=== PATIENT | female | born 1970 | race American Indian/Alaskan Native ===

== ENCOUNTER 2016-08-12 10:30 | Emergency (ER) | payer MEDICAID, OTHER ==
[2016-08-12 10:34] VITALS: BMI 27.1
[2016-08-12 10:39] VITALS: RESP 20; TEMP 98.3
[2016-08-12] MEDS ORDERED: Albuterol-Ipratrop 3 mg / 0.5 (3 ml) UD IH STA ×3 (11:06→13:29)
--- NOTE | 2016-08-12 11:11 | ED PDOC ---
Arrival/HPI - General Historian: Patient - History of Present Illness Time/Duration: 1 week Symptom Onset: Gradual Symptom Course: Worsening - General Chief Complaint: Shortness Of Breath Time Seen by Provider: 08/12/16 10:47 - History of Present Illness Narrative History of Present Illness (Text): 08/12/16 11:07 45 year old female with past medical history of asthma presents to [facility] ED complaining of coughs and shortness. Patient reports her symptoms started about 1 week ago and they have been getting progressively worse. She was admitted to hospital twice, but never intubated. Patient tried albuterol inhaler and over the counter Mucinex which did not provide any relief. Patient's symptoms are worse at night time. Her coughs are non productive and denies having any fever or chest pain. Patient also complains of back pain that is associated with continuous coughing. Patient states she no longer smokes, but her last cigarette was 3 days ago. Patient further denies headache, weakness, nausea, vomiting, abdominal pain, diarrhea, urinary symptoms , sick contacts, recent travels or lower extremity pain. (Sanjay Pino) Past Medical History - Provider Review Nursing Documentation Reviewed: Yes - Past History Past History: Non-Contributing - Infectious Disease Hx of Infectious Diseases: None - Tetanus Immunization Tetanus Immunization: Unknown - Reproductive Menopause: Yes - Past Medical History Past Medical History: No Previous - Cardiac Hx Cardiac Disorders: No - Pulmonary Hx Respiratory Disorders: Yes Hx Asthma: Yes Hx Bronchitis: Yes - Neurological Hx Neurological Disorder: No - HEENT Hx HEENT Disorder: No - Renal Hx Renal Disorder: No - Endocrine/Metabolic Hx Endocrine Disorders: No - Hematological/Oncological Hx Blood Disorders: No - Integumentary Hx Dermatological Disorder: No - Musculoskeletal/Rheumatological Hx Musculoskeletal Disorders: No - Gastrointestinal Hx Gastrointestinal Disorders: No - Genitourinary/Gynecological Hx Genitourinary Disorders: No - Psychiatric Hx Psychophysiologic Disorder: No Hx Substance Use: No - Surgical History Hx Tubal Ligation: Yes - Anesthesia Hx Anesthesia: Yes Hx Anesthesia Reactions: No Hx Malignant Hyperthermia: No - Suicidal Assessment Feels Threatened In Home Enviroment: No Family/Social History - Physician Review Nursing Documentation Reviewed: Yes Family/Social History: Other (asthma) Smoking Status: Light Smoker < 10 Cigarettes Daily Hx Alcohol Use: Yes Hx Substance Use: No Hx Substance Use Treatment: No Allergies/Home Meds Allergies/Adverse Reactions: Allergies Penicillins Allergy (Verified 05/18/16 09:41) RASH Review of Systems - Physician Review All systems were reviewed & negative as marked: Yes - Review of Systems Constitutional: Normal. absent: Fatigue, Weight Change, Fevers, Night Sweats Eyes: Normal. absent: Vision Changes, Photophobia ENT: Normal. absent: Sore Throat, Rhinorrhea, Epistaxis, Sinus Congestion Respiratory: SOB, Cough. absent: Sputum Cardiovascular: Normal. absent: Palpitations, Syncope Gastrointestinal: Normal. absent: Abdominal Pain, Constipation, Diarrhea, Nausea, Vomiting Musculoskeletal: Back Pain (associated with coughs) Skin: Normal Neurological: Normal. absent: Headache, Dizziness Endocrine: Normal. absent: Diaphoresis, Polyuria, Polydipsia Hemo/Lymphatic: Normal Psychiatric: Normal. absent: Anxiety, Depression Physical Exam Vital Signs Reviewed: Yes Temperature: Afebrile Blood Pressure: Normal Pulse: Regular Respiratory Rate: Normal Appearance: Positive for: Non-Toxic, Comfortable Pain Distress: None Mental Status: Positive for: Alert and Oriented X 3 - Systems Exam Head: Present: Atraumatic, Normocephalic Pupils: Present: PERRL Extroacular Muscles: Present: EOMI Conjunctiva: Present: Normal Mouth: Present: Moist Mucous Membranes Respiratory/Chest: Present: Good Air Exchange, Wheezes, Other (continuous non productive coughs). No: Respiratory Distress, Accessory Muscle Use Cardiovascular: Present: Regular Rate and Rhythm, Normal S1, S2. No: Murmurs Abdomen: Present: Normal Bowel Sounds. No: Tenderness, Distention, Peritoneal Signs Upper Extremity: Present: Normal Inspection, NORMAL PULSES, Neurovascularly Intact. No: Cyanosis, Edema Lower Extremity: Present: Normal Inspection, NORMAL PULSES, Neurovascularly Intact. No: Edema Neurological: Present: GCS=15, CN II-XII Intact, Speech Normal Skin: Present: Warm, Dry, Normal Color. No: Rashes Psychiatric: Present: Alert, Oriented x 3, Normal Insight, Normal Concentration Vital Signs Temp Pulse Resp BP Pulse Ox 08/12/16 13:58 84 20 116/60 98 08/12/16 12:30 80 20 121/73 99 08/12/16 10:38 20 98 08/12/16 10:31 98.3 F 86 20 119/80 95 Medical Decision Making ED Course and Treatment: Patient Seen With Resident: In agreement with resident note. Patient was seen and evaluated with resident, came up with plan and treatment together. Patient noted to have persistent wheezing after initial nebulizer. Patient continues to smoke daily and has been counseled on smoking cessation. Additional nebulizers and steroids ordered. Patient will be reassessed. (Narendra Avendaño) 08/12/16 11:07 -CBC, BMP -EKG, Cardiac iso -Duoneb -CXR DDx: Asthma exacerbation, acute bronchitis, community acquired pneumonia 45 year old female with past medical history of asthma presents with worsening shortness of breath and coughs of 7 days. Patient is a current smoker. 08/12/16 14:25 Patient symptoms resolved after receiving 3 dose of duoneb and IV solu-medrol. Patient no longer complains of shortness of breath. Patient's coughing and wheezing improved. Patient will be discharged with z-doroteo and 4 day course of prednisone. (Sanjay Pino) - Lab Interpretations Lab Results: 08/12/16 11:33 08/12/16 11:33 Lab Results 08/12/16 11:33: WBC 5.8 D, RBC 4.17, Hgb 13.4, Hct 39.8, MCV 95.4, MCH 32.1, MCHC 33.7, RDW 12.6, Plt Count 373, MPV 10.2, Gran % 49.2 L, Lymph % (Auto) 31.0 , Ferry % (Auto) 6.5 H, Eos % (Auto) 12.8 H, Baso % (Auto) 0.5, Gran # 2.87, Lymph # 1.8, Ferry # 0.4, Eos # 0.8 H, Baso # 0.03, Sodium 139, Potassium 4.0, Chloride 103, Carbon Dioxide 26, Anion Gap 14, BUN 6 L, Creatinine 0.8, Est GFR ( Amer) > 60, Est GFR (Non-Af Amer) > 60, Random Glucose 121 H, Calcium 9.2, Lactate Dehydrogenase 406, Total Creatine Kinase 91, Troponin I < 0.01 D - RAD Interpretation Radiology Orders: 08/12/16 11:02 CHEST TWO VIEWS (PA/LAT) [RAD] Stat - Medication Orders Current Medication Orders: Discontinued Medications Albuterol/Ipratropium (Duoneb 3 Mg/0.5 Mg (3 Ml) Ud) 3 ml IH STAT STA Stop: 08/12/16 11:07 Last Admin: 08/12/16 11:20 Dose: 3 ML Albuterol/Ipratropium (Duoneb 3 Mg/0.5 Mg (3 Ml) Ud) 3 ml IH STAT STA Stop: 08/12/16 12:34 Last Admin: 08/12/16 12:45 Dose: 3 ML Albuterol/Ipratropium (Duoneb 3 Mg/0.5 Mg (3 Ml) Ud) 3 ml IH STAT STA Stop: 08/12/16 13:30 Last Admin: 08/12/16 13:51 Dose: 3 ML Methylprednisolone (Solu-Medrol) 125 mg IVP STAT STA Stop: 08/12/16 12:34 Last Admin: 08/12/16 12:45 Dose: 125 MG IVP Administration Document 08/12/16 12:45 SRE (Rec: 08/12/16 13:08 SRE [id number]) Charges for Administration # of IVP Administrations 1 Disposition/Present on Arrival - Present on Arrival Any Indicators Present on Arrival: No History of DVT/PE: No History of Uncontrolled Diabetes: No Urinary Catheter: No History of Decub. Ulcer: No History Surgical Site Infection Following: None - Disposition Have Diagnosis and Disposition been Completed?: Yes Disposition Time: 14:19 Patient Plan: Discharge - Disposition Diagnosis: Asthma, Bronchitis Disposition: HOME/ ROUTINE Condition: GOOD Discharge Instructions (ExitCare): Asthma (ED), Acute Bronchitis (ED), How to Stop Smoking (ED) Prescriptions: Prednisone [Deltasone] 40 mg PO DAILY #4 tablet Azithromycin [Z-Doroteo] 250 mg PO DAILY #6 tab Referrals: PCP,NO [Primary Care Provider] - Follow up with primary
[2016-08-12 11:33] LABS: ADD MANUAL DIFF? NO
[2016-08-12 11:40] LABS: BASO # 0.03 K/mm3 (0.0-2.0); BASO % 0.5 % (0.0-3.0); EOS # 0.8 (0.0-0.7); EOS % 12.8 % (1.5-5.0); GRAN # 2.87 (1.4-6.5); GRAN % 49.2 % (50.0-68.0); HEMATOCRIT 39.8 % (36.0-48.0); LYMPH # 1.8 (1.2-3.4); MEAN CELL VOLUME 95.4 fL (80.0-105.0); MEAN CORPUSCULAR HEMOGLOBIN 32.1 pg (25.0-35.0); MEAN CORPUSCULAR HGB CONC 33.7 g/dl (31.0-37.0); MEAN PLATELET VOLUME 10.2 fl (7.0-11.0); MONO # 0.4 (0.1-0.6); MONO % 6.5 % (1.0-6.0); PLATELET COUNT 373 10^3/uL (120.0-450.0); RED CELL DISTRIBUTION WIDTH 12.6 % (11.5-14.5); WHITE BLOOD COUNT 5.8 10^3/ul (4.5-11.0)
[2016-08-12 11:50] LABS: BLOOD UREA NITROGEN 6 mg/dL (7-21); CALCIUM 9.2 mg/dL (8.4-10.5); CARBON DIOXIDE 26 mmol/L (21-33); CHLORIDE 103 mmol/L (98-107); GFR AFRICAN-AMERICAN > 60; GLUCOSE,RANDOM 121 mg/dL (70-110); SODIUM 139 mmol/L (132-148)
[2016-08-12 12:05] LABS: TROPONIN I < 0.01 ng/mL
--- NOTE | 2016-08-12 12:41 | RAD ---
HISTORY: cough, shortness of breath COMPARISON: 08/26/2015 TECHNIQUE: Chest PA and lateral FINDINGS: LUNGS: No active pulmonary disease. PLEURA: No significant pleural effusion identified. No pneumothorax apparent. CARDIOVASCULAR: Normal. OSSEOUS STRUCTURES: No significant abnormalities. VISUALIZED UPPER ABDOMEN: Normal. OTHER FINDINGS: None. IMPRESSION: No active disease. No interval pathology
[2016-08-12 13:59] VITALS: BP 116/60; PULSE 84; O2SAT 98
--- NOTE | 2016-08-12 17:55 | CARD ---
APPROVED REPORT EKG Measurement Heart [id number] <Conclusion> Normal sinus rhythm Normal ECG
== END 2016-08-12 14:38 | disposition home or self-care (01) ==
LOC: ED 10:30
DX: J45.909 Unspecified asthma, uncomplicated (principal); F17.210 Nicotine dependence, cigarettes, uncomplicated
CPT/HCPCS: 71020; 80048; 82550; 83615; 84484; 85025; 93005; 96374; 99284; J2930

== ENCOUNTER 2016-12-02 11:27 | Emergency (ER) | payer MEDICAID ==
[2016-12-02 11:27] VITALS: BMI 27.1
[2016-12-02 12:00] VITALS: TEMP 98.6
--- NOTE | 2016-12-02 13:02 | ED PDOC ---
Arrival/HPI - General Chief Complaint: Lower Extremity Problem/Injury Time Seen by Provider: 12/02/16 11:44 Historian: Patient - History of Present Illness Narrative History of Present Illness (Text): 12/02/16 11:46 A 46 year old female whose past medical history includes asthma presents to the emergency department with right inner thigh pain due to a mechanical fall. The patient states that she slipped in her bathroom and hurt her right inner thigh against the toilet when she fell 2 days ago. The patient denies injury or trauma to any other part of the body, headache, nausea, dizziness, vomiting, diarrhea, shortness of breath, abdominal pain, or any other complaint. Symptom Onset: Sudden Symptom Course: Unchanged Activities at Onset: Rest, Light Context: Slipped Past Medical History - Provider Review Nursing Documentation Reviewed: Yes - Past History Past History: Non-Contributing - Infectious Disease Hx of Infectious Diseases: None - Tetanus Immunization Tetanus Immunization: Unknown - Past Medical History Past Medical History: No Previous - Cardiac Hx Cardiac Disorders: No - Pulmonary Hx Respiratory Disorders: Yes Hx Asthma: Yes Hx Bronchitis: Yes - Neurological Hx Neurological Disorder: No - HEENT Hx HEENT Disorder: No - Renal Hx Renal Disorder: No - Endocrine/Metabolic Hx Endocrine Disorders: No - Hematological/Oncological Hx Blood Disorders: No - Integumentary Hx Dermatological Disorder: No - Musculoskeletal/Rheumatological Hx Musculoskeletal Disorders: No - Gastrointestinal Hx Gastrointestinal Disorders: No - Genitourinary/Gynecological Hx Genitourinary Disorders: No - Psychiatric Hx Psychophysiologic Disorder: Yes Hx Depression: Yes Hx Substance Use: No - Surgical History Hx Tubal Ligation: Yes - Anesthesia Hx Anesthesia: Yes Hx Anesthesia Reactions: No Hx Malignant Hyperthermia: No - Suicidal Assessment Feels Threatened In Home Enviroment: No Family/Social History - Physician Review Nursing Documentation Reviewed: Yes Family/Social History: No Known Family HX Smoking Status: Light Smoker < 10 Cigarettes Daily Hx Alcohol Use: Yes Frequency of alcohol use: Socially Hx Substance Use: No Hx Substance Use Treatment: No Allergies/Home Meds Allergies/Adverse Reactions: Allergies Penicillins Allergy (Verified 12/02/16 11:42) RASH Home Medications: Home Meds Medication Instructions Recorded Confirmed Mirtazapine [Mirtazapine] 30 mg PO DAILY 12/02/16 12/02/16 Venlafaxine HCl [Venlafaxine HCl 1 tab PO DAILY 12/02/16 12/02/16 ER] Review of Systems - Review of Systems Constitutional: absent: Fevers, Night Sweats Respiratory: absent: SOB Cardiovascular: Chest Pain Gastrointestinal: absent: Abdominal Pain, Diarrhea, Nausea, Vomiting Musculoskeletal: Other (Right upper thigh pain) Neurological: absent: Headache, Dizziness Physical Exam Vital Signs Reviewed: Yes Vital Signs Temp Pulse Resp BP Pulse Ox 12/02/16 11:44 98.6 F 84 19 129/91 H 98 Temperature: Afebrile Blood Pressure: Hypertensive Pulse: Regular Respiratory Rate: Normal Appearance: Positive for: Well-Appearing, Non-Toxic, Comfortable Pain Distress: Mild Mental Status: Positive for: Alert and Oriented X 3 - Systems Exam Head: Present: Atraumatic, Normocephalic Neck: Present: Normal Range of Motion Respiratory/Chest: No: Respiratory Distress Abdomen: Present: Normal Bowel Sounds. No: Tenderness, Distention, Peritoneal Signs Back: Present: Normal Inspection Upper Extremity: Present: Normal Inspection. No: Cyanosis, Edema Lower Extremity: Present: NORMAL PULSES (femoral pulse normal), Tenderness ( Mild tenderness to palpation of the right inner thigh), Other (no induration, warmth, errythema, exacerbation of pain with external rotation.). No: Edema, Erythema, Temperature Abnormalties Neurological: Present: GCS=15, CN II-XII Intact, Speech Normal Skin: Present: Warm, Dry, Normal Color. No: Rashes Psychiatric: Present: Alert, Oriented x 3, Normal Insight, Normal Concentration Medical Decision Making ED Course and Treatment: 12/02/16 11:54 Impression: A 46 year old female with right inner thigh pain after a mechanical fall. Differential: muscle strain vs groin hematoma vs DVT vs fx Plan: -- Toradol and Ultram -- US Right Lower Extremity vein -- XR Femur Right -- XR Right Hip with Pelvis -- Reassess and disposition Progress Notes: 12/02/16 14:08 Patient with noted history - xray is negative for fx. Sono showing no DVT. Findings are consistent with groin muscle strain. Patient is more comfortable walking with knee straight, so will d/c in knee immobilizer and nsaids and f/u ortho. - RAD Interpretation Radiology Orders: 12/02/16 11:54 Femur Right [FEMUR MIN 2 VIEWS RT] [RAD] Stat HIP MIN 2V W/ PELVIS RT [RAD] Stat 12/02/16 11:55 DUPLEX LOWER EXTRM VEIN RIGHT [US] Stat - Medication Orders Current Medication Orders: Discontinued Medications Ketorolac Tromethamine (Toradol) 60 mg IM STAT STA Stop: 12/02/16 11:56 Last Admin: 12/02/16 12:06 Dose: 60 mg Tramadol HCl (Ultram) 50 mg PO STAT STA Stop: 12/02/16 11:57 Last Admin: 12/02/16 12:06 Dose: 50 mg - Scribe Statement The provider has reviewed the documentation as recorded by the Roland Hay Provider Scribe Attestation: All medical record entries made by the Scribe were at my direction and personally dictated by me. I have reviewed the chart and agree that the record accurately reflects my personal performance of the history, physical exam, medical decision making, and the department course for this patient. I have also personally directed, reviewed, and agree with the discharge instructions and disposition. Disposition/Present on Arrival - Present on Arrival Any Indicators Present on Arrival: No History of DVT/PE: No History of Uncontrolled Diabetes: No Urinary Catheter: No History of Decub. Ulcer: No History Surgical Site Infection Following: None - Disposition Have Diagnosis and Disposition been Completed?: Yes Diagnosis: Groin strain Disposition: HOME/ ROUTINE Disposition Time: 14:10 Patient Plan: Discharge Patient Problems: Current Active Problems Problem Status Onset Groin strain Acute Condition: GOOD Discharge Instructions (ExitCare): Groin Strain (ED) Additional Instructions: Take the naprosyn as prescribed. Follow up with orthopedics. Return to the emergency department if any new concerning symptoms. Prescriptions: Naproxen [Naprosyn] 500 mg PO BID PRN #30 tab PRN Reason: Pain Referrals: Maldonado Bran MD [Primary Care Provider] - Follow up with primary Demetrio Oseguera MD [Staff Provider] - Follow up with primary Forms: [employer] ([place]atian)
--- NOTE | 2016-12-02 13:47 | RAD ---
PROCEDURE: Right Femur Radiographs. HISTORY: R thight pain COMPARISON: None. TECHNIQUE: AP and Lateral Radiographs of the right femur. FINDINGS: FEMUR: Normal. No fracture. SOFT TISSUES: Normal. OTHER FINDINGS: None. IMPRESSION: Unremarkable radiographs of the right femur.
--- NOTE | 2016-12-02 13:48 | RAD ---
PROCEDURE: Right Hip and pelvis Radiographs. HISTORY: R thigh pain COMPARISON: None. FINDINGS: BONES: Normal. No fracture. JOINTS: Normal. SOFT TISSUES: Normal. OTHER FINDINGS: None. IMPRESSION: Negative study
[2016-12-02 14:21] VITALS: BP 128/88; PULSE 80; RESP 18; O2SAT 99
--- NOTE | 2016-12-02 17:23 | US ---
PROCEDURE: Right lower extremity venous US HISTORY: Leg pain and swelling. Evaluate for DVT. PHYSICIAN(S): Richi Espana M.D. TECHNIQUE: Duplex sonography and color-flow Doppler with graded compression were used to evaluate the deep venous system of the right lower extremity. FINDINGS: The visualized deep venous system of the right lower extremity is sonographically normal and compressible. Normal waveforms and augmentation are seen. There is no sonographic evidence for deep venous thrombosis in the visualized segments of the right lower extremity. IMPRESSION: 1. No sonographic evidence for deep venous thrombosis in the visualized segments of the right lower extremity.
== END 2016-12-02 14:28 | disposition home or self-care (01) ==
LOC: ED 11:27
DX: S39.011A Strain of muscle, fascia and tendon of abdomen, initial encounter (principal); W01.0XXA Fall on same level from slipping, tripping and stumbling without subsequent striking against object, initial encounter; Y92.002 Bathroom of unspecified non-institutional (private) residence as the place of occurrence of the external cause
CPT/HCPCS: 73502; 73552; 93971; 96372; 99285; J1885

== ENCOUNTER 2016-12-02 19:00 | Emergency (ER) | payer MEDICAID ==
[2016-12-02 19:13] VITALS: BMI 26.7
[2016-12-02 19:14] VITALS: BP 110/59; PULSE 73; RESP 19; TEMP 98.7; O2SAT 98
--- NOTE | 2016-12-02 20:15 | ED PDOC ---
Arrival/HPI - General Chief Complaint: Syncope Time Seen by Provider: 12/02/16 19:19 Historian: Patient - History of Present Illness Narrative History of Present Illness (Text): 12/02/16 20:06 A 46 year old female presents to the emergency department with onset of dizziness, palpatation, and diaphoresis this evening with subsequnet syncopal episode. Patient had been seen earlier in emergency department for strain to her leg after a mechanical fall. The pt states that she was in the elevator when symptoms began. She was going to visit her boyfriend. The only recollection the pt has is waking up having hit the back of her head. She states that according to her boyfriend, it seemed that her eyes were rolled back in her head. Patient denies shortness of breath, chest pain, nausea, vomiting, diarrhea, chills, fever, or any other complaint. Time/Duration: Prior to Arrival Symptom Course: Unchanged Activities at Onset: Rest, Light Context: Home Past Medical History - Provider Review Nursing Documentation Reviewed: Yes - Past History Past History: Non-Contributing - Infectious Disease Hx of Infectious Diseases: None - Tetanus Immunization Tetanus Immunization: Unknown - Past Medical History Past Medical History: No Previous - Cardiac Hx Cardiac Disorders: No - Pulmonary Hx Respiratory Disorders: Yes Hx Asthma: Yes Hx Bronchitis: Yes - Neurological Hx Neurological Disorder: No - HEENT Hx HEENT Disorder: No - Renal Hx Renal Disorder: No - Endocrine/Metabolic Hx Endocrine Disorders: No - Hematological/Oncological Hx Blood Disorders: No - Integumentary Hx Dermatological Disorder: No - Musculoskeletal/Rheumatological Hx Musculoskeletal Disorders: No - Gastrointestinal Hx Gastrointestinal Disorders: No - Genitourinary/Gynecological Hx Genitourinary Disorders: No - Psychiatric Hx Psychophysiologic Disorder: No Hx Depression: No Hx Substance Use: No - Surgical History Hx Tubal Ligation: Yes - Anesthesia Hx Anesthesia: Yes Hx Anesthesia Reactions: No Hx Malignant Hyperthermia: No - Suicidal Assessment Feels Threatened In Home Enviroment: No Family/Social History - Physician Review Nursing Documentation Reviewed: Yes Family/Social History: No Known Family HX Smoking Status: Light Smoker < 10 Cigarettes Daily Hx Alcohol Use: Yes Hx Substance Use: No Hx Substance Use Treatment: No Allergies/Home Meds Allergies/Adverse Reactions: Allergies Penicillins Allergy (Verified 12/02/16 19:14) RASH Home Medications: Home Meds Medication Instructions Recorded Confirmed Mirtazapine [Mirtazapine] 30 mg PO DAILY 12/02/16 12/02/16 Venlafaxine HCl [Venlafaxine HCl 1 tab PO DAILY 12/02/16 12/02/16 ER] Review of Systems - Physician Review All systems were reviewed & negative as marked: Yes - Review of Systems Respiratory: absent: SOB Cardiovascular: absent: Chest Pain Gastrointestinal: absent: Abdominal Pain, Diarrhea, Nausea, Vomiting Neurological: Dizziness, Other (Syncopal Episode) Physical Exam Vital Signs Reviewed: Yes Vital Signs Temp Pulse Resp BP Pulse Ox 12/02/16 19:13 98.7 F 73 19 110/59 L 98 Temperature: Afebrile Blood Pressure: Hypertensive Pulse: Regular Respiratory Rate: Normal Appearance: Positive for: Well-Appearing, Non-Toxic, Comfortable Pain Distress: None Mental Status: Positive for: Alert and Oriented X 3 - Systems Exam Head: Present: Atraumatic, Normocephalic. No: Other (no evidence of tonic- clonic movemetns. Tenderness to posterior occipital scalp) Pupils: Present: PERRL Extroacular Muscles: Present: EOMI Conjunctiva: Present: Normal Mouth: Present: Moist Mucous Membranes. No: Other (No tongue biting) Neck: Present: Normal Range of Motion Respiratory/Chest: Present: Clear to Auscultation, Good Air Exchange. No: Respiratory Distress, Accessory Muscle Use Cardiovascular: Present: Regular Rate and Rhythm, Normal S1, S2. No: Murmurs Abdomen: Present: Normal Bowel Sounds. No: Tenderness, Distention, Peritoneal Signs Genitourinary/Pelvic Exam: No: Other (No urinary incontinence) Back: Present: Normal Inspection Upper Extremity: Present: Normal Inspection. No: Cyanosis, Edema Lower Extremity: Present: Normal Inspection. No: Edema Neurological: Present: GCS=15, CN II-XII Intact, Speech Normal Skin: Present: Warm, Dry, Normal Color. No: Rashes Psychiatric: Present: Alert, Oriented x 3, Normal Insight, Normal Concentration Medical Decision Making ED Course and Treatment: 12/02/16 20:20 Impression: A 46 year old female after a syncopal episode. Differential Diagnosis included but are not limited to: Plan: -- Reassess and disposition Prior Visits: Notes and results from previous visits were reviewed. Patient was last seen in the emergency department on Progress Notes: 12/02/16 21:30 Pt. had refused complete ER evaluation including labs/CT scan Head.Stated she felt fine and wanted to leave.Understands in full risk of refusal including possibility undiagnosed illness/brain injury/disease/possible heart disease/ .Nevertheless insists on leaving.Pt. to sign out AGAINST MEDICAL ADVICE. - RAD Interpretation Radiology Orders: 12/02/16 19:34 CHEST PORTABLE [RAD] Stat Disposition/Present on Arrival - Present on Arrival Any Indicators Present on Arrival: No History of DVT/PE: No History of Uncontrolled Diabetes: No Urinary Catheter: No History of Decub. Ulcer: No History Surgical Site Infection Following: None - Disposition Have Diagnosis and Disposition been Completed?: Yes Diagnosis: Syncope Disposition: AGAINST MEDICAL ADVICE Disposition Time: 21:30 Condition: STABLE Discharge Instructions (ExitCare): Syncope (ED) Referrals: Isabella Nielson MD [Primary Care Provider] - Follow up with primary Forms: [employer] (Gu[place]ian)
--- NOTE | 2016-12-03 08:20 | RAD ---
HISTORY: syncope COMPARISON: 08/12/2016 FINDINGS: LUNGS: No active pulmonary disease. PLEURA: No significant pleural effusion identified, no pneumothorax apparent. CARDIOVASCULAR: Normal. OSSEOUS STRUCTURES: No significant abnormalities. VISUALIZED UPPER ABDOMEN: Normal. OTHER FINDINGS: None. IMPRESSION: No active disease.
--- NOTE | 2016-12-04 01:12 | CARD ---
APPROVED REPORT EKG Measurement Heart [id number] <Conclusion> Normal sinus rhythm Normal ECG
== END 2016-12-02 21:30 | disposition left against medical advice (07) ==
LOC: ED 19:00
DX: R55 Syncope and collapse (principal); Z88.0 Allergy status to penicillin; F17.210 Nicotine dependence, cigarettes, uncomplicated

== ENCOUNTER 2018-08-31 22:50 | Inpatient (IN) | payer MEDICAID ==
[2018-08-31] MEDS ORDERED: Albuterol-Ipratrop 3 mg / 0.5 (3 ml) UD IH STA (23:55)
[2018-09-01 01:18] LABS: ALB/GLOB RATIO 1.4 (1.1-1.8); ALBUMIN 4.4 g/dL (3.0-4.8); ALT/SGPT 19 U/L (7-56); AST/SGOT 31 U/L (14-36); BLOOD UREA NITROGEN 14 mg/dL (7-21); CALCIUM 9.4 mg/dL (8.4-10.5); GFR NON-AFRICAN AMERICAN > 60
[2018-09-01 01:20] LABS: BASO # 0.03 K/mm3 (0.0-2.0); BASO % 0.4 % (0.0-3.0); EOS # 0.6 (0.0-0.7); EOS % 7.1 % (1.5-5.0); HEMOGLOBIN 13.4 g/dL (12.0-16.0); LYMPH # 2.4 (1.2-3.4); LYMPH % 31.5 % (22.0-35.0); MEAN CORPUSCULAR HEMOGLOBIN 31.9 pg (25.0-35.0); MEAN CORPUSCULAR HGB CONC 33.6 g/dl (31.0-37.0); MONO # 0.5 (0.1-0.6); MONO % 6.7 % (1.0-6.0); RBC 4.2 10^6/uL (3.5-6.1); RED CELL DISTRIBUTION WIDTH 12.1 % (11.5-14.5); WHITE BLOOD COUNT 7.8 10^3/uL (4.5-11.0)
[2018-09-01] MEDS ORDERED: Albuterol-Ipratrop 3 mg / 0.5 (3 ml) UD IH STA ×2 (01:21→02:48)
--- NOTE | 2018-09-01 02:08 | ED PDOC ---
Arrival/HPI - General Chief Complaint: Shortness Of Breath Time Seen by Provider: 08/31/18 23:04 Historian: Patient - History of Present Illness Narrative History of Present Illness (Text): 09/01/18 02:05 A 47 year old female, whose past medical history includes asthma, presents to the emergency department complaining of worsening shortness of breath for the past few days. Patient reports also experiencing constant cough and nasal congestion. States she has been using nebulizer without improvement. Patient denies any fever, chills, abdominal pain, nausea, vomiting, or any other complaints at this time. Admits to current history of smoking. PMD: Dr. Nielson Time/Duration: < week (few days) Past Medical History - Provider Review Nursing Documentation Reviewed: Yes - Past History Past History: Non-Contributing - Infectious Disease Hx of Infectious Diseases: None - Tetanus Immunization Tetanus Immunization: Unknown - Past Medical History Past Medical History: No Previous - Cardiac Hx Cardiac Disorders: No - Pulmonary Hx Respiratory Disorders: Yes Hx Asthma: Yes Hx Bronchitis: Yes - Neurological Hx Neurological Disorder: No - HEENT Hx HEENT Disorder: No - Renal Hx Renal Disorder: No - Endocrine/Metabolic Hx Endocrine Disorders: No - Hematological/Oncological Hx Blood Disorders: No - Integumentary Hx Dermatological Disorder: No - Musculoskeletal/Rheumatological Hx Musculoskeletal Disorders: No - Gastrointestinal Hx Gastrointestinal Disorders: No - Genitourinary/Gynecological Hx Genitourinary Disorders: No - Psychiatric Hx Psychophysiologic Disorder: No Hx Depression: No Hx Substance Use: No - Surgical History Hx Tubal Ligation: Yes - Anesthesia Hx Anesthesia: Yes Hx Anesthesia Reactions: No Hx Malignant Hyperthermia: No - Suicidal Assessment Feels Threatened In Home Enviroment: No Family/Social History - Physician Review Nursing Documentation Reviewed: Yes Family/Social History: No Known Family HX Smoking Status: Light Smoker < 10 Cigarettes Daily Hx Alcohol Use: Yes Hx Substance Use: No Hx Substance Use Treatment: No Allergies/Home Meds Allergies/Adverse Reactions: Allergies Penicillins Allergy (Verified 12/02/16 19:14) RASH Home Medications: Home Meds Medication Instructions Recorded Confirmed Mirtazapine 30 mg PO DAILY 12/02/16 12/02/16 Venlafaxine HCl [Venlafaxine HCl 1 tab PO DAILY 12/02/16 12/02/16 ER] Review of Systems - Physician Review All systems were reviewed & negative as marked: Yes - Review of Systems Constitutional: absent: Fevers, Night Sweats Eyes: absent: Vision Changes, Photophobia, Eye Pain ENT: Sinus Congestion Respiratory: SOB (worsening), Cough (constant), Wheezing Cardiovascular: absent: Chest Pain, Palpitations Gastrointestinal: absent: Abdominal Pain, Constipation, Diarrhea, Nausea, Vomiting Genitourinary Female: absent: Dysuria, Frequency, Hematuria Musculoskeletal: absent: Arthralgias, Back Pain, Neck Pain Skin: absent: Rash, Pruritis Neurological: absent: Headache, Dizziness Psychiatric: absent: Anxiety, Depression, Suicidal Ideation Physical Exam Vital Signs Reviewed: Yes Vital Signs Temp Pulse Resp BP Pulse Ox 08/31/18 22:50 98.2 F 96 H 18 132/74 98 Temperature: Afebrile Blood Pressure: Normal Pulse: Regular Respiratory Rate: Tachypneic Appearance: Positive for: Well-Appearing, Non-Toxic, Comfortable Pain Distress: Mild Mental Status: Positive for: Alert and Oriented X 3 - Systems Exam Head: Present: Atraumatic, Normocephalic Pupils: Present: PERRL Extroacular Muscles: Present: EOMI Conjunctiva: Present: Normal Mouth: Present: Moist Mucous Membranes Neck: Present: Normal Range of Motion Respiratory/Chest: Present: Wheezes (diffuse wheezing bilaterally), Tachypneic. No: Clear to Auscultation, Good Air Exchange, Respiratory Distress, Accessory Muscle Use, Decreased Breath Sounds Cardiovascular: Present: Regular Rate and Rhythm, Normal S1, S2. No: Murmurs Abdomen: No: Tenderness, Distention, Peritoneal Signs, Rebound, Guarding Back: Present: Normal Inspection Upper Extremity: Present: Normal Inspection. No: Cyanosis, Edema Lower Extremity: Present: Normal Inspection. No: Edema, CALF TENDERNESS Neurological: Present: GCS=15, Speech Normal Skin: Present: Warm, Dry, Normal Color. No: Rashes Psychiatric: Present: Alert, Oriented x 3, Normal Insight, Normal Concentration Medical Decision Making ED Course and Treatment: 09/01/18 02:06 47 year old female with worsening shortness of breath. Physical exam shows diffuse wheezing bilaterally. Plan: -- EKG -- Chest X-ray -- Labs -- Albuterol -- Tylenol -- SOLU-Medrol -- Reassess and disposition Progress Notes: cbc; wnl cmp; wnl cxr; wnl ekg; normal sinus rhythm at 100 bpm normal axis normal intervals no ST elevations QTC 451 Patient reassessment: After 3 DuoNeb's and 125 of Solu-Medrol the patient remains with shortness of breath with wheezing bilaterally. pt initially was going to sign out AMA, but now has decided to remain in the hospital. 2gram magnesium added IV. 09/01/18 02:[address] ramos; accepts observational status admission for asthma exacerbation. Impression: Asthma exacerbation Admit MedSurg Reassessment Condition: Re-examined, Improving,but remains with symptoms - Lab Interpretations Lab Results: Total Bilirubin 0.3 mg/dL (0.2-1.3) 09/01/18 00:35 AST 31 U/L (14-36) 09/01/18 00:35 ALT 19 U/L (7-56) 09/01/18 00:35 Alkaline Phosphatase 74 U/L (38-126) 09/01/18 00:35 Total Protein 7.6 g/dL (5.8-8.3) 09/01/18 00:35 Albumin 4.4 g/dL (3.0-4.8) 09/01/18 00:35 Globulin 3.2 gm/dL 09/01/18 00:35 Albumin/Globulin Ratio 1.4 (1.1-1.8) 09/01/18 00:35 - RAD Interpretation Radiology Orders: 08/31/18 23:55 CHEST PORTABLE [RAD] Stat - Medication Orders Current Medication Orders: Discontinued Medications Acetaminophen (Tylenol 325mg Tab) 975 mg PO STAT STA Stop: 09/01/18 01:34 Last Admin: 09/01/18 01:50 Dose: 975 mg MAR Pain/Vitals Document 09/01/18 01:50 EQ (Rec: 09/01/18 01:50 EQ [facility]-20) Pain Reassessment Is This A Pain ReAssessment? No Sleep Is patient sleeping during reassessment? No Presence of Pain Presence of Pain Yes Albuterol/Ipratropium (Duoneb 3 Mg/0.5 Mg (3 Ml) Ud) 3 ml IH STAT STA Stop: 08/31/18 23:56 Last Admin: 09/01/18 00:23 Dose: 3 ml Albuterol/Ipratropium (Duoneb 3 Mg/0.5 Mg (3 Ml) Ud) 3 ml IH STAT STA Stop: 09/01/18 01:22 Last Admin: 09/01/18 01:51 Dose: 3 ml Methylprednisolone (Solu-Medrol) 125 mg IVP STAT STA Stop: 08/31/18 23:56 Last Admin: 09/01/18 00:21 Dose: 125 mg IVP Administration Document 09/01/18 00:21 EQ (Rec: 09/01/18 00:22 EQ [facility]-21) Charges for Administration # of IVP Administrations 1 - Scribe Statement The provider has reviewed the documentation as recorded by the Roland Blanco Provider Scribe Attestation: All medical record entries made by the Scribe were at my direction and pe rsonally dictated by me. I have reviewed the chart and agree that the record accurately reflects my personal performance of the history, physical exam, medical decision making, and the department course for this patient. I have also personally directed, reviewed, and agree with the discharge instructions and disposition. Disposition/Present on Arrival - Present on Arrival Any Indicators Present on Arrival: No History of DVT/PE: No History of Uncontrolled Diabetes: No Urinary Catheter: No History of Decub. Ulcer: No History Surgical Site Infection Following: None - Disposition Have Diagnosis and Disposition been Completed?: Yes Diagnosis: Asthma exacerbation Disposition: HOSPITALIZED Disposition Time: 02:30 Patient Plan: Observation Patient Problems: Current Active Problems Problem Status Onset Asthma exacerbation Acute Condition: FAIR
[2018-09-01] MEDS ORDERED: Magnesium Sulfate 2 gm/50 ml 2 GM/50 ML BAG IVPB ONE (02:48)
--- NOTE | 2018-09-01 04:00 | CP.PCM.HP ---
<Jackie Max - Last Filed: 09/01/18 08:37> History of Present Illness - History of Present Illness History of Present Illness: HISTORY & PHYSICAL NOTE FOR HOSPITALIST SERVICE JACKIE MAX PGY1 47 y/o F with PMH bronchitis, asthma presented to ED with complaints of SOB that has been going on since wednesday with associated cough. Pt reports she decided to visit ED today because shortness of breath was unbearable. She reports she has had asthma & bronchitis in the past and uses nebulizer treatment several times a day without relief. Upon interview, pt had already received solu-medrol in ED and already had significant relief. She denied fevers, chills, headache, dizziness, chest pain, palpitations, nausea, vomiting, constipation, diarrhea, dysuria. PMH: Bronchitis, asthma All: Pencillins- rash PSH: b/l tubal ligation, 20+ SH: cigarettes use, 4 cigarettes x 35+ years, smokes marijuana q1-2 weeks Hosp: denies recent hospitalization FH: Father: alive: asthma, kidney failure on HD, COPD, HTN. Mother: alive: healthy Meds: buproprion 150mg, venlafaxine 75mg qd, mirtazepine 15mg qd, loratadine 10mg qd, topiramate 50mg qd PMD: Dr. Isabella Nielson Pharm: [facility] pharmacy Present on Admission - Present on Admission Any Indicators Present on Admission: No Review of Systems - Review of Systems Review of Systems: per HPI Past Patient History - Infectious Disease Hx of Infectious Diseases: None - Tetanus Immunizations Tetanus Immunization: Unknown - Past Social History Smoking Status: Light Smoker < 10 Cigarettes Daily - CARDIAC Hx Cardiac Disorders: No - PULMONARY Hx Respiratory Disorders: Yes Hx Asthma: Yes Hx Bronchitis: Yes - NEUROLOGICAL Hx Neurological Disorder: No - HEENT Hx HEENT Problems: No - RENAL Hx Chronic Kidney Disease: No - ENDOCRINE/METABOLIC Hx Endocrine Disorders: No - HEMATOLOGICAL/ONCOLOGICAL Hx Blood Disorders: No - INTEGUMENTARY Hx Dermatological Problems: No - MUSCULOSKELETAL/RHEUMATOLOGICAL Hx Musculoskeletal Disorders: No - GASTROINTESTINAL Hx Gastrointestinal Disorders: No - GENITOURINARY/GYNECOLOGICAL Hx Genitourinary Disorders: No - PSYCHIATRIC Hx Psychophysiologic Disorder: No Hx Depression: No Hx Substance Use: No - SURGICAL HISTORY Hx Tubal Ligation: Yes - ANESTHESIA Hx Anesthesia: Yes Hx Anesthesia Reactions: No Hx Malignant Hyperthermia: No Meds Allergies/Adverse Reactions: Allergies Allergy/AdvReac Type Severity Reaction Status Date / Time Penicillins Allergy RASH Verified 12/02/16 19:14 Physical Exam - Constitutional Appears: Well, Non-toxic, No Acute Distress - Head Exam Head Exam: NORMAL INSPECTION, NORMOCEPHALIC - Eye Exam Eye Exam: EOMI, Normal appearance - ENT Exam ENT Exam: Mucous Membranes Moist, Normal Exam - Neck Exam Neck exam: Positive for: Normal Inspection - Respiratory Exam Respiratory Exam: Clear to Auscultation Bilateral, NORMAL BREATHING PATTERN - Cardiovascular Exam Cardiovascular Exam: REGULAR RHYTHM, +S1, +S2 - GI/Abdominal Exam GI & Abdominal Exam: Soft. absent: Tenderness - Back Exam Back exam: NORMAL INSPECTION - Neurological Exam Neurological exam: Alert, Oriented x3 - Psychiatric Exam Psychiatric exam: Normal Affect, Normal Mood - Skin Skin Exam: Dry, Intact, Warm Results - Vital Signs Recent Vital Signs: Last Vital Signs Temp 97.5 F L 09/01/18 02:27 Pulse 85 09/01/18 02:27 Resp 18 09/01/18 02:27 BP 106/70 09/01/18 02:27 Pulse Ox 97 09/01/18 02:27 - Labs Result Diagrams: 09/01/18 00:35 09/01/18 00:35 Labs: Laboratory Results - last 24 hr 09/01/18 09/01/18 00:35 00:35 WBC 7.8 RBC 4.20 Hgb 13.4 Hct 39.9 MCV 95.0 MCH 31.9 MCHC 33.6 RDW 12.1 Plt Count 305 MPV 10.0 Neut % (Auto) 54.3 Lymph % (Auto) 31.5 Arroyo % (Auto) 6.7 H Eos % (Auto) 7.1 H Baso % (Auto) 0.4 Lymph # (Auto) 2.4 Arroyo # (Auto) 0.5 Eos # (Auto) 0.6 Baso # (Auto) 0.03 Absolute Neuts (auto) 4.21 Sodium 139 Potassium 3.6 Chloride 103 Carbon Dioxide 27 Anion Gap 12 BUN 14 Creatinine 0.8 Est GFR ( Amer) > 60 Est GFR (Non-Af Amer) > 60 Random Glucose 106 Calcium 9.4 Total Bilirubin 0.3 AST 31 ALT 19 Alkaline Phosphatase 74 Total Protein 7.6 Albumin 4.4 Globulin 3.2 Albumin/Globulin Ratio 1.4 Assessment & Plan - Assessment and Plan (Free Text) Assessment: 47 y/o F with hx of asthma & bronchitis admitted for asthma exacerbation. Pt had significant improvement after solumedrol treatment in ED Plan: Asthma Exacerbation s/p duoneb tx x3, MgSO4, solumedrol in ED. No wheezing upon my interview continue duoneb treatments Solu-medrol 20IVP daily continue home loratadine continue home O2 Anxiety/Depression No current homicidal/suicidal ideations continue home buproprion, mirtazapine Migraines continue home topamax DVT/GI PPx: SCD/pepcid Case reviewed with attending physician, Dr. Iveth Max PGY1 <Sridhar Lazaro - Last Filed: 09/01/18 20:55> Results - Vital Signs Recent Vital Signs: Last Vital Signs Temp 98.2 F 09/01/18 14:00 Pulse 92 H 09/01/18 14:00 Resp 20 09/01/18 14:00 BP 142/84 09/01/18 14:00 Pulse Ox 100 09/01/18 14:00 - Labs Result Diagrams: 09/01/18 00:35 09/01/18 00:35 Labs: Laboratory Results - last 24 hr 09/01/18 09/01/18 09/01/18 00:35 00:35 08:00 WBC 7.8 RBC 4.20 Hgb 13.4 Hct 39.9 MCV 95.0 MCH 31.9 MCHC 33.6 RDW 12.1 Plt Count 305 MPV 10.0 Neut % (Auto) 54.3 Lymph % (Auto) 31.5 Arroyo % (Auto) 6.7 H Eos % (Auto) 7.1 H Baso % (Auto) 0.4 Lymph # (Auto) 2.4 Arroyo # (Auto) 0.5 Eos # (Auto) 0.6 Baso # (Auto) 0.03 Absolute Neuts (auto) 4.21 Sodium 139 Potassium 3.6 Chloride 103 Carbon Dioxide 27 Anion Gap 12 BUN 14 Creatinine 0.8 Est GFR ( Amer) > 60 Est GFR (Non-Af Amer) > 60 Random Glucose 106 Calcium 9.4 Magnesium Total Bilirubin 0.3 AST 31 ALT 19 Alkaline Phosphatase 74 Total Protein 7.6 Albumin 4.4 Globulin 3.2 Albumin/Globulin Ratio 1.4 Procalcitonin < 0.05 L 09/01/18 08:00 WBC RBC Hgb Hct MCV MCH MCHC RDW Plt Count MPV Neut % (Auto) Lymph % (Auto) Arroyo % (Auto) Eos % (Auto) Baso % (Auto) Lymph # (Auto) Arroyo # (Auto) Eos # (Auto) Baso # (Auto) Absolute Neuts (auto) Sodium Potassium Chloride Carbon Dioxide Anion Gap BUN Creatinine Est GFR ( Amer) Est GFR (Non-Af Amer) Random Glucose Calcium Magnesium 2.3 H Total Bilirubin AST ALT Alkaline Phosphatase Total Protein Albumin Globulin Albumin/Globulin Ratio Procalcitonin Attending/Attestation - Attestation I have personally seen and examined this patient.: Yes I have fully participated in the care of the patient.: Yes I have reviewed all pertinent clinical information: Yes
[2018-09-01] MEDS ORDERED: Albuterol-Ipratrop 3 mg / 0.5 (3 ml) UD IH PRN (04:29)
[2018-09-01] MEDS ORDERED: Azithromycin 250 MG in Sodium Chloride 0.9% 250 ML IVPB STA (04:32)
[2018-09-01 05:26] VITALS: BMI 27.4
[2018-09-01] MEDS ORDERED: cefTRIAXone 1 gm 1 GM/100 ML BAG IVPB STA (05:56)
[2018-09-01] MEDS: Albuterol-Ipratrop 3 mg / 0.5 (3 ml) UD IH SCH ×3 (08:15→20:53)
--- NOTE | 2018-09-01 08:33 | RAD ---
Date of service: 09/01/2018 HISTORY: asthma COMPARISON: 12/02/2016 TECHNIQUE: 1 view obtained. FINDINGS: LUNGS: No active pulmonary disease. PLEURA: No significant pleural effusion identified, no pneumothorax apparent. CARDIOVASCULAR: No aortic atherosclerotic calcification present. Normal cardiac size. No pulmonary vascular congestion. OSSEOUS STRUCTURES: No significant abnormalities. VISUALIZED UPPER ABDOMEN: Normal. OTHER FINDINGS: None. IMPRESSION: No active disease.
[2018-09-01] MEDS ORDERED: MethylPREDNISolone 40 mg Vial IVP SCH (10:00)
[2018-09-01] MEDS: MethylPREDNISolone 40 mg Vial IVP SCH (10:21)
[2018-09-01] MEDS: Venlafaxine 75 mg ER Cap PO SCH (10:23)
[2018-09-01] MEDS: buPROPion SR 150 MG TABLET PO SCH (10:23)
--- NOTE | 2018-09-01 10:45 | CARD ---
APPROVED REPORT Date of service: 08/31/2018 EKG Measurement Heart [id number] <Conclusion> Normal sinus rhythm Possible Left atrial enlargement Borderline ECG
[2018-09-01] MEDS: guaiFENesin 600 mg ER Tab PO SCH ×2 (12:13→18:33)
[2018-09-01] MEDS ORDERED: guaiFENesin 200 mg/10 ml Syrup UD PO STA ×2 (20:29→20:43)
[2018-09-02] MEDS: Albuterol-Ipratrop 3 mg / 0.5 (3 ml) UD IH SCH ×4 (02:16→19:13)
[2018-09-02 07:37] LABS: BASO # 0.02 K/mm3 (0.0-2.0); BASO % 0.2 % (0.0-3.0); EOS % 0.3 % (1.5-5.0); HEMOGLOBIN 13.7 g/dL (12.0-16.0); LYMPH # 2.9 (1.2-3.4); LYMPH % 27.8 % (22.0-35.0); MEAN CELL VOLUME 95.9 fl (80.0-105.0); MEAN CORPUSCULAR HEMOGLOBIN 31.6 pg (25.0-35.0); MEAN CORPUSCULAR HGB CONC 32.9 g/dl (31.0-37.0); MEAN PLATELET VOLUME 10.2 fl (7.0-11.0); MONO # 1.1 (0.1-0.6); RBC 4.34 10^6/uL (3.5-6.1); RED CELL DISTRIBUTION WIDTH 12.7 % (11.5-14.5); WHITE BLOOD COUNT 10.5 10^3/uL (4.5-11.0)
[2018-09-02 07:54] LABS: ALB/GLOB RATIO 1.3 (1.1-1.8); ALBUMIN 4.5 g/dL (3.0-4.8); ALT/SGPT 12 U/L (7-56); AST/SGOT 29 U/L (14-36); BLOOD UREA NITROGEN 13 mg/dL (7-21); CALCIUM 9.7 mg/dL (8.4-10.5); GFR NON-AFRICAN AMERICAN > 60
[2018-09-02 08:12] VITALS: RESP 20
[2018-09-02] MEDS: MethylPREDNISolone 40 mg Vial IVP SCH ×2 (09:33→21:20)
[2018-09-02] MEDS: Venlafaxine 75 mg ER Cap PO SCH (09:34)
[2018-09-02] MEDS: guaiFENesin 600 mg ER Tab PO SCH ×2 (09:34→17:07)
[2018-09-02] MEDS: buPROPion SR 150 MG TABLET PO SCH (09:34)
[2018-09-02] MEDS ORDERED: Azithromycin 250 MG in Sodium Chloride 0.9% 250 ML IVPB SCH (11:00)
--- NOTE | 2018-09-02 12:14 | CP.PCM.PN ---
<Mark Saba - Last Filed: 09/02/18 12:16> Subjective - Date & Time of Evaluation Date of Evaluation: 09/02/18 Time of Evaluation: 07:00 - Subjective Subjective: Mark Saba DO, PGY-1 Hospitalist Progress Note for Dr. Sanford Talley Patient was seen and examined at bedside this AM. She reports continuing to have cough and persistent wheezing despite duo-neb treatments. She reports continuing to feel short of breath with exertion. She states the breathing treatments help for a while but only last for an hour or so. She otherwise has no additional complaints and denies fever/chills, CP, worsened chest congestion, abd pain/nausea/vomiting, or urinary complaints. Objective - Vital Signs/Intake and Output Vital Signs (last 24 hours): Temp Pulse Resp BP Pulse Ox 98.2 F 84 20 99/63 L 94 L 09/02/18 06:00 09/02/18 06:00 09/02/18 06:00 09/02/18 06:00 09/02/18 06:00 Intake and Output: 09/02/18 09/02/18 06:59 18:59 Intake Total 300 Balance 300 - Medications Medications: Current Medications Albuterol/Ipratropium (Duoneb 3 Mg/0.5 Mg (3 Ml) Ud) 3 ml IH [id number] [facility] Last Admin: 09/02/18 07:34 Dose: 3 ml Albuterol/Ipratropium (Duoneb 3 Mg/0.5 Mg (3 Ml) Ud) 3 ml IH Q2H PRN PRN Reason: Shortness of Breath Bupropion HCl (Wellbutrin Sr 150 Mg) 150 mg PO DAILY [facility] Last Admin: 09/02/18 09:34 Dose: 150 mg Famotidine (Pepcid) 20 mg PO 1000,2200 [facility] Last Admin: 09/02/18 09:34 Dose: 20 mg Guaifenesin (Mucinex La) 600 mg PO BID [facility] Last Admin: 09/02/18 09:34 Dose: 600 mg Azithromycin (Zithromax 500mg In Ns) 500 mg in 250 mls @ 167 mls/hr IVPB DAILY [facility]; Protocol Loratadine (Claritin) 10 mg PO DAILY [facility] Last Admin: 09/02/18 09:34 Dose: 10 mg Methylprednisolone (Solu-Medrol) 40 mg IVP Q12H [facility] Mirtazapine (Remeron) 15 mg PO HS [facility] Last Admin: 09/01/18 21:11 Dose: 15 mg Topiramate (Topamax) 50 mg PO BID [facility]; Protocol Last Admin: 09/02/18 09:34 Dose: 50 mg Venlafaxine HCl (Effexor Xr) 75 mg PO DAILY [facility] Last Admin: 09/02/18 09:34 Dose: 75 mg - Labs Labs: 09/02/18 07:15 09/02/18 07:15 - Constitutional Appears: Other (able to protect airway but appears uncomfortable, coughing frequently) - Head Exam Head Exam: ATRAUMATIC, NORMOCEPHALIC - Eye Exam Eye Exam: EOMI, PERRL - ENT Exam ENT Exam: Mucous Membranes Moist - Neck Exam Neck Exam: Full ROM. absent: Lymphadenopathy, Thyromegaly - Respiratory Exam Respiratory Exam: Prolonged Expiratory Phase, Rhonchi (coarse breath sounds with wheezes b/l, unchanged from prior exam), Wheezes. absent: Rales - Cardiovascular Exam Cardiovascular Exam: REGULAR RHYTHM, RRR, +S1, +S2. absent: Gallop, Rubs, Murmur - GI/Abdominal Exam GI & Abdominal Exam: Soft, Normal Bowel Sounds. absent: Guarding, Tenderness - Extremities Exam Extremities Exam: Full ROM. absent: Pedal Edema - Back Exam Back Exam: NORMAL INSPECTION - Neurological Exam Neurological Exam: Alert, Awake, Oriented x3 Neuro motor strength exam: Left Upper Extremity: 5, Right Upper Extremity: 5, Left Lower Extremity: 5, Right Lower Extremity: 5 - Psychiatric Exam Psychiatric exam: Normal Affect, Normal Mood - Skin Skin Exam: Dry, Intact, Warm Assessment and Plan - Assessment and Plan (Free Text) Assessment: 47 yo F with PMH of recurrent bronchitis, asthma, and probable COPD (given smoking hx) presented to ED with complaint of SOB with associated cough. She is admitted for management of obstructive lung disease exacerbation. She did not improve overnight and is now requiring higher doses of IV steroid, and continued duo-neb treatment. Plan: Obstructive Lung Disease Exacerbation Suspect patient likely has COPD given smoking history Increase solu-medrol to 40 mg IVP q12h Encouraged patient that she may have duo-neb treatments q2h as needed Increase zithromax to 500 mg daily Continue mucinex, claritin Recommend outpatient pulmonology f/u and PFTs Tobacco Abuse Nicotine patch PRN Regular cessation counseling Migraines Continue home topamax Anxiety/Depression Continue home meds DVT/GI PPX: SCD/pepcid Full Code HHD Monitor on med/surg Patient seen, examined with, and plan discussed with my attending Dr. Sanford Saba D.O. IM Resident PGY-1 Pager: [phone] <Kiera Talley R - Last Filed: 09/03/18 11:52> Objective - Vital Signs/Intake and Output Vital Signs (last 24 hours): Temp Pulse Resp BP Pulse Ox 98.3 F 77 20 119/73 95 09/03/18 06:00 09/03/18 06:00 09/03/18 06:00 09/03/18 06:00 09/03/18 06:00 - Medications Medications: Current Medications Albuterol/Ipratropium (Duoneb 3 Mg/0.5 Mg (3 Ml) Ud) 3 ml IH [id number] [facility] Last Admin: 09/03/18 08:40 Dose: 3 ml Albuterol/Ipratropium (Duoneb 3 Mg/0.5 Mg (3 Ml) Ud) 3 ml IH Q2H PRN PRN Reason: Shortness of Breath Bupropion HCl (Wellbutrin Sr 150 Mg) 150 mg PO DAILY [facility] Last Admin: 09/03/18 10:07 Dose: 150 mg Famotidine (Pepcid) 20 mg PO 1000,2200 [facility] Last Admin: 09/03/18 10:07 Dose: 20 mg Guaifenesin (Mucinex La) 600 mg PO BID [facility] Last Admin: 09/03/18 10:08 Dose: 600 mg Azithromycin (Zithromax 500mg In Ns) 500 mg in 250 mls @ 167 mls/hr IVPB DAILY [facility]; Protocol Last Admin: 09/03/18 10:05 Dose: 167 mls/hr Loratadine (Claritin) 10 mg PO DAILY [facility] Last Admin: 09/03/18 10:08 Dose: 10 mg Methylprednisolone (Solu-Medrol) 40 mg IVP Q12H [facility] Last Admin: 09/03/18 10:07 Dose: 40 mg Mirtazapine (Remeron) 15 mg PO HS [facility] Last Admin: 09/02/18 21:19 Dose: 15 mg Nicotine (Nicoderm Cq) 1 patch TD DAILY PRN PRN Reason: URGE TO SMOKE Topiramate (Topamax) 50 mg PO BID [facility]; Protocol Last Admin: 09/03/18 10:07 Dose: 50 mg Venlafaxine HCl (Effexor Xr) 75 mg PO DAILY [facility] Last Admin: 09/03/18 10:08 Dose: 75 mg - Labs Labs: 09/03/18 07:01 09/03/18 07:01 Attending/Attestation - Attestation I have personally seen and examined this patient.: Yes I have fully participated in the care of the patient.: Yes I have reviewed all pertinent clinical information, including history, physical exam and plan: Yes Notes (Text): Patient seen and examined by me with resident at approximately 11:20AM on 09/02/18. Case including HPI, physical exam, and assessment and plan discussed with resident. Agree with above with following additions/corrections. Patient is a 47-year-old female past medical history significant for bronchitis, asthma, tobacco abuse, and marijuana use that presented to the emergency room with shortness of breath. Patient states she feels a little better. Still with shortness of breath worsened with exertion. Still with cough and wheezing. No chest pain or palpitations. States she has some back pain from pulling muscles from coughing. No nausea, vomiting, or abdominal pain. No fevers or chills. No dysuria. Physical exam: General: Awake and alert lying in bed in no acute distress HEENT: Normocephalic, atraumatic. Extraocular muscles intact. Pupils equal and reactive, no scleral icterus. Oropharynx is pink and moist. No pharyngeal erythema or exudate appreciated. Neck is supple. Cardiovascular: Normal rhythm. Normal S1 and S2. No murmurs, rubs, or gallops appreciated Pulmonary: Normal respiratory effort. Poor airway entry. Decreased breath sounds. Positive expiratory wheezing. No rhonchi or rales appreciated. Gastrointestinal: Soft, nondistended. Nontender. Positive bowel sounds all 4 quadrants. No guarding. Musculoskeletal: Moves all extremities. No calf tenderness. No edema appreciated. Central nervous system: AAO X 3. CN 2-12 grossly intact. No focal deficits appreciated. Dermatologic: Skin warm and dry. Assessment and plan: Patient is a 47-year-old female past medical history significant for bronchitis, asthma, tobacco abuse, and marijuana use that presented to the emergency room with shortness of breath. 1. Asthma exacerbation. Possible COPD secondary to smoking history. Patient advised that she will need outpatient lung function testing with a brand representative. Continue nebulizer treatments. Solumedrol increased. Continue Mucinex. Zithromax added. Continue O2 via nasal cannula as needed. Continue claritin. Patient counseled at length on smoking cessation 2. History of migraines. Continue home topamax 3. Depression. Continue home wellbutrin, effexor, and remeron 4. Tobacco abuse. Continue nicotine patch. Patient counseled at length on smoking cessation. Case was discussed in detail with the patient regarding current diagnosis, study results, and treatment plan. All questions answered.
[2018-09-02] MEDS: Azithromycin 500MG/NS 250ml 500 MG/250 ML BAG IVPB SCH (12:42)
[2018-09-03] MEDS: Albuterol-Ipratrop 3 mg / 0.5 (3 ml) UD IH SCH ×4 (01:22→21:20)
[2018-09-03 07:45] LABS: BASO # 0.01 K/mm3 (0.0-2.0); BASO % 0.1 % (0.0-3.0); HEMOGLOBIN 13.9 g/dL (12.0-16.0); LYMPH # 1.7 (1.2-3.4); MEAN CELL VOLUME 96.6 fl (80.0-105.0); MEAN CORPUSCULAR HEMOGLOBIN 31.4 pg (25.0-35.0); MEAN CORPUSCULAR HGB CONC 32.6 g/dl (31.0-37.0); MEAN PLATELET VOLUME 10.2 fl (7.0-11.0); MONO # 0.5 (0.1-0.6); RBC 4.42 10^6/uL (3.5-6.1); RED CELL DISTRIBUTION WIDTH 12.7 % (11.5-14.5); WHITE BLOOD COUNT 10.7 10^3/uL (4.5-11.0)
[2018-09-03 08:08] LABS: ALB/GLOB RATIO 1.3 (1.1-1.8); ALBUMIN 4.6 g/dL (3.0-4.8); ALT/SGPT 20 U/L (7-56); AST/SGOT 24 U/L (14-36); BLOOD UREA NITROGEN 12 mg/dL (7-21); GFR NON-AFRICAN AMERICAN > 60
[2018-09-03] MEDS: Azithromycin 500MG/NS 250ml 500 MG/250 ML BAG IVPB SCH (10:05)
[2018-09-03] MEDS: buPROPion SR 150 MG TABLET PO SCH (10:07)
[2018-09-03] MEDS: MethylPREDNISolone 40 mg Vial IVP SCH ×2 (10:07→21:58)
[2018-09-03] MEDS: Venlafaxine 75 mg ER Cap PO SCH (10:08)
[2018-09-03] MEDS: guaiFENesin 600 mg ER Tab PO SCH ×2 (10:08→17:38)
--- NOTE | 2018-09-03 13:02 | CP.PCM.PN ---
<Mark Saba - Last Filed: 09/03/18 12:58> Subjective - Date & Time of Evaluation Date of Evaluation: 09/03/18 Time of Evaluation: 08:00 - Subjective Subjective: Mark Saba DO, PGY-1 Hospitalist Progress Note for Dr. Sanford Talley Patient was seen and examined at bedside this AM. She reports continued dyspnea on exertion that is only slightly improved from yesterday. She continues to complain of cough. Objective - Vital Signs/Intake and Output Vital Signs (last 24 hours): Temp Pulse Resp BP Pulse Ox 98.3 F 77 20 119/73 95 09/03/18 06:00 09/03/18 06:00 09/03/18 06:00 09/03/18 06:00 09/03/18 06:00 - Medications Medications: Current Medications Albuterol/Ipratropium (Duoneb 3 Mg/0.5 Mg (3 Ml) Ud) 3 ml IH [id number] [facility] Last Admin: 09/03/18 08:40 Dose: 3 ml Albuterol/Ipratropium (Duoneb 3 Mg/0.5 Mg (3 Ml) Ud) 3 ml IH Q2H PRN PRN Reason: Shortness of Breath Bupropion HCl (Wellbutrin Sr 150 Mg) 150 mg PO DAILY [facility] Last Admin: 09/03/18 10:07 Dose: 150 mg Famotidine (Pepcid) 20 mg PO 1000,2200 [facility] Last Admin: 09/03/18 10:07 Dose: 20 mg Guaifenesin (Mucinex La) 600 mg PO BID [facility] Last Admin: 09/03/18 10:08 Dose: 600 mg Azithromycin (Zithromax 500mg In Ns) 500 mg in 250 mls @ 167 mls/hr IVPB DAILY [facility]; Protocol Last Admin: 09/03/18 10:05 Dose: 167 mls/hr Loratadine (Claritin) 10 mg PO DAILY [facility] Last Admin: 09/03/18 10:08 Dose: 10 mg Methylprednisolone (Solu-Medrol) 40 mg IVP Q12H [facility] Last Admin: 09/03/18 10:07 Dose: 40 mg Mirtazapine (Remeron) 15 mg PO HS [facility] Last Admin: 09/02/18 21:19 Dose: 15 mg Nicotine (Nicoderm Cq) 1 patch TD DAILY PRN PRN Reason: URGE TO SMOKE Topiramate (Topamax) 50 mg PO BID [facility]; Protocol Last Admin: 09/03/18 10:07 Dose: 50 mg Venlafaxine HCl (Effexor Xr) 75 mg PO DAILY [facility] Last Admin: 09/03/18 10:08 Dose: 75 mg - Labs Labs: 09/03/18 07:01 09/03/18 07:01 - Constitutional Appears: No Acute Distress, Other (no acute respiratory distress but uncomfortable when woken up, coughing ) - Head Exam Head Exam: ATRAUMATIC, NORMOCEPHALIC - Eye Exam Eye Exam: PERRL - ENT Exam ENT Exam: Mucous Membranes Moist - Neck Exam Neck Exam: Full ROM - Respiratory Exam Respiratory Exam: Decreased Breath Sounds, Wheezes (b/l wheezes persistent but improved from yesterday). absent: Rales, Rhonchi, Respiratory Distress - Cardiovascular Exam Cardiovascular Exam: REGULAR RHYTHM, RRR, +S1, +S2. absent: Gallop, Rubs, Murmur - GI/Abdominal Exam GI & Abdominal Exam: Soft, Normal Bowel Sounds. absent: Guarding, Tenderness - Extremities Exam Extremities Exam: Full ROM. absent: Tenderness - Back Exam Back Exam: Full ROM - Neurological Exam Neurological Exam: Alert, Oriented x3 - Psychiatric Exam Psychiatric exam: Normal Affect, Normal Mood - Skin Skin Exam: Dry, Intact, Warm Assessment and Plan - Assessment and Plan (Free Text) Assessment: 47 yo F with PMH of recurrent bronchitis, asthma, and probable COPD (given smoking hx) presented to ED with complaint of SOB with associated cough. She is admitted for management of obstructive lung disease exacerbation. She has only slightly improved and will need an additional day of continued duo-neb treatments and IV solumedrol. Plan: Asthma/Obstructive Lung Disease Exacerbation Patient has known history of asthma but suspect also has COPD given smoking hx Patient has persistent decreased breath sounds and wheezes b/l Will need to continue additional day of duo-neb treatments and IV solu-medrol Encouraged patient to request duo-neb treatments any time she is short of breath or coughing frequently Continue zithromax to 500 mg daily Continue mucinex, claritin Recommend outpatient pulmonology f/u and PFTs Tobacco Abuse Nicotine patch PRN Regular cessation counseling Migraines Continue home topamax Anxiety/Depression Continue home meds DVT/GI PPX: SCD/pepcid Full Code HHD Monitor on med/surg Patient seen, examined with, and plan discussed with my attending Dr. Sanford Saba D.O. IM Resident PGY-1 Pager: [phone] <Kiera Talley R - Last Filed: 09/03/18 13:29> Objective - Vital Signs/Intake and Output Vital Signs (last 24 hours): Temp Pulse Resp BP Pulse Ox 98.3 F 77 20 119/73 95 09/03/18 06:00 09/03/18 06:00 09/03/18 06:00 09/03/18 06:00 09/03/18 06:00 - Medications Medications: Current Medications Albuterol/Ipratropium (Duoneb 3 Mg/0.5 Mg (3 Ml) Ud) 3 ml IH [id number] [facility] Last Admin: 09/03/18 08:40 Dose: 3 ml Albuterol/Ipratropium (Duoneb 3 Mg/0.5 Mg (3 Ml) Ud) 3 ml IH Q2H PRN PRN Reason: Shortness of Breath Bupropion HCl (Wellbutrin Sr 150 Mg) 150 mg PO DAILY [facility] Last Admin: 09/03/18 10:07 Dose: 150 mg Famotidine (Pepcid) 20 mg PO 1000,2200 [facility] Last Admin: 09/03/18 10:07 Dose: 20 mg Guaifenesin (Mucinex La) 600 mg PO BID [facility] Last Admin: 09/03/18 10:08 Dose: 600 mg Azithromycin (Zithromax 500mg In Ns) 500 mg in 250 mls @ 167 mls/hr IVPB DAILY [facility]; Protocol Last Admin: 09/03/18 10:05 Dose: 167 mls/hr Loratadine (Claritin) 10 mg PO DAILY [facility] Last Admin: 09/03/18 10:08 Dose: 10 mg Methylprednisolone (Solu-Medrol) 40 mg IVP Q12H [facility] Last Admin: 09/03/18 10:07 Dose: 40 mg Mirtazapine (Remeron) 15 mg PO HS [facility] Last Admin: 09/02/18 21:19 Dose: 15 mg Nicotine (Nicoderm Cq) 1 patch TD DAILY PRN PRN Reason: URGE TO SMOKE Topiramate (Topamax) 50 mg PO BID [facility]; Protocol Last Admin: 09/03/18 10:07 Dose: 50 mg Venlafaxine HCl (Effexor Xr) 75 mg PO DAILY [facility] Last Admin: 09/03/18 10:08 Dose: 75 mg - Labs Labs: 09/03/18 07:01 09/03/18 07:01 Attending/Attestation - Attestation I have personally seen and examined this patient.: Yes I have fully participated in the care of the patient.: Yes I have reviewed all pertinent clinical information, including history, physical exam and plan: Yes Notes (Text): Patient seen and examined by me with resident at approximately 9:40AM on 09/03/18. Case including HPI, physical exam, and assessment and plan discussed with resident. Agree with above with following additions/corrections. Patient is a 47-year-old female past medical history significant for bronchitis, asthma, tobacco abuse, and marijuana use that presented to the emergency room with shortness of breath. Patient states she feels better. Shortness of breath improved. Still with cough and wheezing. No chest pain or palpitations. No nausea, vomiting, or abdominal pain. No fevers or chills. No dysuria. Patient again counseled on smoking cessation and need for outpatient PFTs. Physical exam: General: Awake and alert lying in bed in no acute distress HEENT: Normocephalic, atraumatic. Extraocular muscles intact. Pupils equal and reactive, no scleral icterus. Oropharynx is pink and moist. No pharyngeal erythema or exudate appreciated. Neck is supple. Cardiovascular: Normal rhythm. Normal S1 and S2. No murmurs, rubs, or gallops appreciated Pulmonary: Normal respiratory effort. Poor airway entry. Decreased breath sounds. Positive expiratory wheezing. Positive coarse breath sounds with coughing. No rales appreciated. Gastrointestinal: Soft, nondistended. Nontender. Positive bowel sounds all 4 quadrants. No guarding. Musculoskeletal: Moves all extremities. No calf tenderness. No edema appreciated. Central nervous system: AAO X 3. CN 2-12 grossly intact. No focal deficits appreciated. Dermatologic: Skin warm and dry. Assessment and plan: Patient is a 47-year-old female past medical history significant for bronchitis, asthma, tobacco abuse, and marijuana use that presented to the emergency room with shortness of breath. 1. Asthma exacerbation. Possible COPD secondary to smoking history. Continue nebulizer treatments. Continue solu-medrol and Mucinex. Zithromax added. Continue O2 via nasal cannula as needed. Continue claritin. Patient again advised that she will need outpatient lung function testing with a general practice. Patient again counseled at length on smoking cessation. Pending 6 minute walk test. 2. History of migraines. Continue home topamax 3. Depression. Continue home wellbutrin, effexor and remeron 4. Tobacco abuse. Continue nicotine patch. Patient counseled at length on smoking cessation. Case was discussed in detail with the patient regarding current diagnosis, study results, and treatment plan. All questions answered.
[2018-09-03] MEDS ORDERED: guaiFENesin DM 200 mg-20 mg/10 ml UD PO ONE (22:21)
[2018-09-04] MEDS: Albuterol-Ipratrop 3 mg / 0.5 (3 ml) UD IH SCH ×3 (02:35→13:25)
[2018-09-04 07:29] LABS: BASO # 0.01 K/mm3 (0.0-2.0); BASO % 0.1 % (0.0-3.0); HEMOGLOBIN 14.7 g/dL (12.0-16.0); LYMPH # 1.8 (1.2-3.4); LYMPH % 18.3 % (22.0-35.0); MEAN CELL VOLUME 96.8 fl (80.0-105.0); MEAN CORPUSCULAR HEMOGLOBIN 31.6 pg (25.0-35.0); MEAN CORPUSCULAR HGB CONC 32.7 g/dl (31.0-37.0); MEAN PLATELET VOLUME 10.2 fl (7.0-11.0); MONO # 0.5 (0.1-0.6); MONO % 5.1 % (1.0-6.0); RBC 4.65 10^6/uL (3.5-6.1); RED CELL DISTRIBUTION WIDTH 12.8 % (11.5-14.5); WHITE BLOOD COUNT 9.5 10^3/uL (4.5-11.0)
[2018-09-04 08:36] VITALS: BP 115/69; PULSE 85; TEMP 97.6; O2SAT 95
[2018-09-04 10:24] LABS: ALB/GLOB RATIO 1.3 (1.1-1.8); ALBUMIN 4.8 g/dL (3.0-4.8); ALT/SGPT 18 U/L (7-56); AST/SGOT 52 U/L (14-36); BLOOD UREA NITROGEN 12 mg/dL (7-21); CALCIUM 10.3 mg/dL (8.4-10.5); GFR NON-AFRICAN AMERICAN > 60
--- NOTE | 2018-09-04 15:01 | CP.PCM.DIS ---
<Mark Saba - Last Filed: 09/04/18 15:08> Provider - Provider Date of Admission: 09/02/18 11:47 Attending physician: Kiera Talley DO Primary care physician: Isabella Nielson MD Time Spent in preparation of Discharge (in minutes): 40 Diagnosis - Discharge Diagnosis (1) Cough Status: Chronic (2) Asthma exacerbation Status: Acute (3) Asthmatic bronchitis Status: Chronic Hospital Course - Lab Results Lab Results: Most Recent Lab Values WBC 9.5 10^3/uL (4.5-11.0) 09/04/18 07:00 RBC 4.65 10^6/uL (3.5-6.1) 09/04/18 07:00 Hgb 14.7 g/dL (12.0-16.0) 09/04/18 07:00 Hct 45.0 % (36.0-48.0) 09/04/18 07:00 MCV 96.8 fl (80.0-105.0) 09/04/18 07:00 MCH 31.6 pg (25.0-35.0) 09/04/18 07:00 MCHC 32.7 g/dl (31.0-37.0) 09/04/18 07:00 RDW 12.8 % (11.5-14.5) 09/04/18 07:00 Plt Count 353 10^3/uL (120.0-450.0) 09/04/18 07:00 MPV 10.2 fl (7.0-11.0) 09/04/18 07:00 Neut % (Auto) 76.5 % (50.0-68.0) H 09/04/18 07:00 Lymph % (Auto) 18.3 % (22.0-35.0) L 09/04/18 07:00 [place] % (Auto) 5.1 % (1.0-6.0) 09/04/18 07:00 Eos % (Auto) 0.0 % (1.5-5.0) L 09/04/18 07:00 Baso % (Auto) 0.1 % (0.0-3.0) 09/04/18 07:00 Lymph # (Auto) 1.8 (1.2-3.4) 09/04/18 07:00 [place] # (Auto) 0.5 (0.1-0.6) 09/04/18 07:00 Eos # (Auto) 0.0 (0.0-0.7) 09/04/18 07:00 Baso # (Auto) 0.01 K/mm3 (0.0-2.0) 09/04/18 07:00 Absolute Neuts (auto) 7.29 (1.4-6.5) H 09/04/18 07:00 Sodium 142 mmol/L (132-148) 09/04/18 07:00 Potassium 4.5 mmol/L (3.6-5.0) 09/04/18 07:00 Chloride 108 mmol/L (98-107) H 09/04/18 07:00 Carbon Dioxide 20 mmol/L (21-33) L 09/04/18 07:00 Anion Gap 19 (10-20) 09/04/18 07:00 BUN 12 mg/dL (7-21) 09/04/18 07:00 Creatinine 0.8 mg/dl (0.7-1.2) 09/04/18 07:00 Est GFR ( Amer) > 60 09/04/18 07:00 Est GFR (Non-Af Amer) > 60 09/04/18 07:00 Random Glucose 111 mg/dL (70-110) H 09/04/18 07:00 Calcium 10.3 mg/dL (8.4-10.5) 09/04/18 07:00 Phosphorus 3.8 mg/dL (2.5-4.5) 09/04/18 07:00 Magnesium 2.2 mg/dL (1.7-2.2) 09/04/18 07:00 Total Bilirubin 0.2 mg/dL (0.2-1.3) 09/04/18 07:00 AST 52 U/L (14-36) H D 09/04/18 07:00 ALT 18 U/L (7-56) 09/04/18 07:00 Alkaline Phosphatase 76 U/L (38-126) 09/04/18 07:00 Total Protein 8.5 g/dL (5.8-8.3) H 09/04/18 07:00 Albumin 4.8 g/dL (3.0-4.8) 09/04/18 07:00 Globulin 3.7 gm/dL 09/04/18 07:00 Albumin/Globulin Ratio 1.3 (1.1-1.8) 09/04/18 07:00 Procalcitonin < 0.05 NG/ML (0.19-0.49) L 09/01/18 08:00 Influenza Typ A,B (EIA) Negative for flu a/b (NEGATIVE) 09/02/18 06:40 - Hospital Course Hospital Course: Mark Saba DO, PGY-1 Hospitalist Discharge Summary for Dr. Sanford Talley Prior to admission: Patient is a 47 year old female with PMH of recurrent bronchitis, asthma, and probable COPD (given smoking hx) who originally presented to ED with a complaint of SOB with associated cough for the past 3 days prior to admission. Patient continued to have persistent SOB and cough despite duo-neb treatments in ED, prompting her admission. Hospitalization course: Patient did not improve initially on oral prednisone alone. She was subsequently placed on solu-medrol 40 mg IVP q12h with more improvement this AM. She continued to have scheduled and PRN duo-neb treatments. Initial zithromax dose was increased to 500 mg after she failed to improve initially. Mucinex and claritin were continued throughout her stay. On examination this AM, patient stated that she wanted to go home and was willing to sign out AMA. Risks of signing out AMA were explained to patient as documented in chart. Patient signed out AMA. Patient seen, examined with, and discharge plan discussed with my attending Dr. Sanford Saba D.O. IM Resident PGY-1 Discharge Exam - Head Exam Head Exam: ATRAUMATIC, NORMOCEPHALIC - Eye Exam Eye Exam: EOMI, PERRL - ENT Exam ENT Exam: Mucous Membranes Moist - Neck Exam Neck exam: Full Rom, Normal Inspection - Respiratory Exam Respiratory Exam: Rhonchi (coarse breath sounds b/l improved from prior exams), Wheezes (end expiratory wheezes b/l), NORMAL BREATHING PATTERN. absent: Accessory Muscle Use, Rales, Respiratory Distress - Cardiovascular Exam Cardiovascular Exam: REGULAR RHYTHM, RRR, +S1, +S2. absent: Diastolic murmur, Gallop, Rubs, Systolic Murmur - GI/Abdominal Exam GI & Abdominal Exam: Normal Bowel Sounds, Soft, Unremarkable. absent: Tende rness - Extremities Exam Extremities exam: full ROM, normal inspection - Neurological Exam Neurological exam: Alert, Oriented x3 - Psychiatric Exam Psychiatric exam: Normal Affect, Normal Mood - Skin Skin Exam: Dry, Intact, Warm Discharge Plan - Follow Up Plan Condition: GOOD Disposition: AGAINST MEDICAL ADVICE Instructions: Asthma (DC), Asthma (GEN) Referrals: Isabella Nielson MD [Primary Care Provider] - <Kiera Talley - Last Filed: 09/06/18 12:14> Provider - Provider Date of Admission: 09/02/18 11:47 Attending physician: Kiera Talley DO Primary care physician: Isabella Nielson MD Hospital Course - Lab Results Lab Results: Most Recent Lab Values WBC 9.5 10^3/uL (4.5-11.0) 09/04/18 07:00 RBC 4.65 10^6/uL (3.5-6.1) 09/04/18 07:00 Hgb 14.7 g/dL (12.0-16.0) 09/04/18 07:00 Hct 45.0 % (36.0-48.0) 09/04/18 07:00 MCV 96.8 fl (80.0-105.0) 09/04/18 07:00 MCH 31.6 pg (25.0-35.0) 09/04/18 07:00 MCHC 32.7 g/dl (31.0-37.0) 09/04/18 07:00 RDW 12.8 % (11.5-14.5) 09/04/18 07:00 Plt Count 353 10^3/uL (120.0-450.0) 09/04/18 07:00 MPV 10.2 fl (7.0-11.0) 09/04/18 07:00 Neut % (Auto) 76.5 % (50.0-68.0) H 09/04/18 07:00 Lymph % (Auto) 18.3 % (22.0-35.0) L 09/04/18 07:00 [place] % (Auto) 5.1 % (1.0-6.0) 09/04/18 07:00 Eos % (Auto) 0.0 % (1.5-5.0) L 09/04/18 07:00 Baso % (Auto) 0.1 % (0.0-3.0) 09/04/18 07:00 Lymph # (Auto) 1.8 (1.2-3.4) 09/04/18 07:00 [place] # (Auto) 0.5 (0.1-0.6) 09/04/18 07:00 Eos # (Auto) 0.0 (0.0-0.7) 09/04/18 07:00 Baso # (Auto) 0.01 K/mm3 (0.0-2.0) 09/04/18 07:00 Absolute Neuts (auto) 7.29 (1.4-6.5) H 09/04/18 07:00 Sodium 142 mmol/L (132-148) 09/04/18 07:00 Potassium 4.5 mmol/L (3.6-5.0) 09/04/18 07:00 Chloride 108 mmol/L (98-107) H 09/04/18 07:00 Carbon Dioxide 20 mmol/L (21-33) L 09/04/18 07:00 Anion Gap 19 (10-20) 09/04/18 07:00 BUN 12 mg/dL (7-21) 09/04/18 07:00 Creatinine 0.8 mg/dl (0.7-1.2) 09/04/18 07:00 Est GFR ( Amer) > 60 09/04/18 07:00 Est GFR (Non-Af Amer) > 60 09/04/18 07:00 Random Glucose 111 mg/dL (70-110) H 09/04/18 07:00 Calcium 10.3 mg/dL (8.4-10.5) 09/04/18 07:00 Phosphorus 3.8 mg/dL (2.5-4.5) 09/04/18 07:00 Magnesium 2.2 mg/dL (1.7-2.2) 09/04/18 07:00 Total Bilirubin 0.2 mg/dL (0.2-1.3) 09/04/18 07:00 AST 52 U/L (14-36) H D 09/04/18 07:00 ALT 18 U/L (7-56) 09/04/18 07:00 Alkaline Phosphatase 76 U/L (38-126) 09/04/18 07:00 Total Protein 8.5 g/dL (5.8-8.3) H 09/04/18 07:00 Albumin 4.8 g/dL (3.0-4.8) 09/04/18 07:00 Globulin 3.7 gm/dL 09/04/18 07:00 Albumin/Globulin Ratio 1.3 (1.1-1.8) 09/04/18 07:00 Procalcitonin < 0.05 NG/ML (0.19-0.49) L 09/01/18 08:00 Influenza Typ A,B (EIA) Negative for flu a/b (NEGATIVE) 09/02/18 06:40 Attending/Attestation - Attestation I have personally seen and examined this patient.: Yes I have fully participated in the care of the patient.: Yes I have reviewed all pertinent clinical information, including history, physical exam and plan: Yes Notes (Text): Please note this DC summary is for 09/04/18 Patient seen and examined by me with residentat approximately 9:45AMon 09/04/18. Case including discharge plan discussed with resident. Agree with above with following additions/corrections. Patient is a 47-year-old female past medical history significant for bronchitis, asthma, tobacco abuse, and marijuana use that presented to the emergency room with shortness of breath. Please see H&P for full details. Patient was found to have asthma exacerbation with possible COPD, history of migraines, depression, and tobacco abuse. Patient was treated with nebulizer treatments, solumedrol, Mucinex, and Zithromax. Patient was also treated with Claritin. Patient was treated with O2 via nasal cannula. Patient was advised at length for need for outpatient lung function testing with a advertising teacher. Patient was counseled at length on smoking cessation. Patient was continued on home Topamax for history of migraines. Patient was continued on Wellbutrin, Effexor, and Remeron for depression. Patient was continued on nicotine patch for tobacco abuse. Patient continued to have decreased breath sounds and wheezing when patient decided to sign out against medical advice. Patient requested to sign out against medical advice. This action is against my medical advice to the patient and the decision was made with informed refusal. The patient was told that further work up and treatment is necessary and a full explanation of my rationale was given. The risks for leaving were explained to the patient and include but are not limited to increased mortality and morbidity, , permanent disability, and worsening of known or unknown conditions. Patient was AAOx3 and was able to make this informed decision and understood the clinical situation and my explanation of the risks of leaving. The patient voluntarily accepted these risks and signed an AMA form. The patient was given the opportunity to ask questions and reconsider. The patient was encouraged to return to the emergency room at any time for further treatment. Physical exam: General: Awake and alert lying in bed in no acute distress HEENT: Normocephalic, atraumatic. Extraocular muscles intact. Pupils equal and reactive, no scleral icterus. Oropharynx is pink and moist. No pharyngeal erythema or exudate appreciated. Neck is supple. Cardiovascular: Normal rhythm. Normal S1 and S2. No murmurs, rubs, or gallops appreciated Pulmonary: Normal respiratory effort. Poor airway entry. Decreased breath sounds. Positive expiratory wheezing. Positive coarse breath sounds with coughing. No rales appreciated. Gastrointestinal: Soft, nondistended. Nontender. Positive bowel sounds all 4 quadrants. No guarding. Musculoskeletal: Moves all extremities. No calf tenderness. No edema appreciated. Central nervous system: AAO X 3. CN 2-12 grossly intact. No focal deficits appreciated. Dermatologic: Skin warm and dry. Please see chart for full details. Time spent in signing patient out AMA including chart review, medication review, discussion with the patient, medical billing instructor, consultants, and nursing staff was approximately 40 minutes.
== END 2018-09-04 15:36 | disposition left against medical advice (07) | DRG 96 ==
LOC: ED 22:50 → ERH 09-01 02:56 → 5RSO 09-01 04:30 → OBSVTOIN 09-02 11:47
PROVIDERS: ADMIT Hospitalist; ATTEND Hospitalist
DX: J45.901 Unspecified asthma with (acute) exacerbation (principal); J44.9 Chronic obstructive pulmonary disease, unspecified; F12.90 Cannabis use, unspecified, uncomplicated; F17.210 Nicotine dependence, cigarettes, uncomplicated; F32.89 Other specified depressive episodes; Z79.899 Other long term (current) drug therapy; Z82.49 Family history of ischemic heart disease and other diseases of the circulatory system; Z82.5 Family history of asthma and other chronic lower respiratory diseases; Z98.51 Tubal ligation status; G43.909 Migraine, unspecified, not intractable, without status migrainosus; F41.9 Anxiety disorder, unspecified